=== PATIENT | female | born 1970 | race Caucasian/White ===

== ENCOUNTER 2016-12-16 20:46 | Inpatient (IN) | payer OTHER ==
[~2016-12-16] VITALS: Ht 172.7 cm; Wt 121.1 kg
[~2016-12-16 20:46] MED LIST: CHILDREN S PO; HUMI SC; LANTI SC; LOSARTAN
[2016-12-16 23:23] LABS: BASOPHIL % 0.4 % (0-2); PLATELET COUNT 316 x10^3mcL (130-400); RED CELL DISTRIBUTION WIDTH 13.6 % (11.5-14.5)
[2016-12-16 23:34] LABS: CALCIUM 8.8 mg/dL (8.5-10.1); CARBON DIOXIDE 26.5 mmol/L (21-32); CHLORIDE SERUM 100 mmol/L (98-107); CREATININE SERUM 0.7 mg/dL (0.6-1.0); GFR1 > 60 mL/min; GLUCOSE SERUM 304 mg/dL (74-106); POTASSIUM SERUM 3.8 mmol/L (3.5-5.1); SODIUM SERUM 133 mmol/L (136-145)
[2016-12-16 23:42] LABS: ALKALINE PHOSPHATASE 96 U/L (46-116); ALT/SGPT 26 U/L (14-59); AST/SGOT 18 U/L (15-37); BILIRUBIN TOTAL 0.29 mg/dL (0.20-1.00); TOTAL PROTEIN, SERUM 7.5 g/dL (6.4-8.2)
[2016-12-16 23:44] LABS: ALBUMIN 3.3 g/dL (3.4-5.0)
[2016-12-17 00:04] LABS: AMPHETAMINE QUAL UR NONE DETECTED (NEG <=1000)
[2016-12-17 02:14] VITALS: BP 134/72
[2016-12-17 02:53] LABS: MAGNESIUM 1.8 mg/dL (1.8-2.4); PHOSPHOROUS 3.7 mg/dL (2.5-4.9)
[2016-12-17 03:01] LABS: T3 TOTAL 1.27 ng/mL
[2016-12-17 03:03] LABS: FREE T4 1.18 ng/dL (0.76-1.46); FREE THYROXINE INDEX 3.2 ug/dL (1.4-4.5); T4(THYROXINE) 9.3 ug/dL (4.7-13.3)
[2016-12-17] MEDS ORDERED: TRULICITY1.5 MG/0.5 SC (04:18)
[2016-12-17] MEDS ORDERED: METFORMIN HCL1000 MG PO (04:20)
[2016-12-17 05:36] VITALS: BP 125/77
[2016-12-17 10:51] VITALS: BP 140/86
[2016-12-17] MEDS ORDERED: GLIMEPIRIDE4 M1 PO (13:11)
[2016-12-17] MEDS ORDERED: GABAPENTIN300 M4 (13:11)
[2016-12-17 14:02] LABS: microscopic required? NO
[2016-12-17 14:20] LABS: urine erythrocyte NEGATIVE (NEGATIVE)
[2016-12-17 14:33] VITALS: BP 127/74
[2016-12-17 17:33] VITALS: BP 124/78
[2016-12-17] MEDS ORDERED: APAP/HYDROCODON1 T13 PO (17:58)
[2016-12-17] MEDS ORDERED: ATIVAN0.5 M1 PO (18:00)
[2016-12-17 18:19] VITALS: BP 124/78
== END 2016-12-17 19:00 | disposition home or self-care (01) | DRG 206 ==
LOC: ED 20:46 → DU 12-17 01:09
PROVIDERS: Emergency Medicine; ADMIT Family Medicine
DX: M94.0 Chondrocostal junction syndrome [Tietze] (principal); E44.0 Moderate protein-calorie malnutrition; E87.1 Hypo-osmolality and hyponatremia; Z68.41 Body mass index [BMI] 40.0-44.9, adult; E11.65 Type 2 diabetes mellitus with hyperglycemia; E78.1 Pure hyperglyceridemia; E66.01 Morbid (severe) obesity due to excess calories
CPT/HCPCS: 82962; 83880; 84439; J1815; J1885; J2060; J7030; Q0092

== ENCOUNTER 2020-03-03 21:54 | Emergency (ER) | payer OTHER ==
[~2020-03-03] VITALS: Ht 172.7 cm; Wt 99.8 kg
[~2020-03-03 21:54] MED LIST changes: +APAP/HYDROCODON1 T13 PO; +ATIVAN0.5 M1 PO; +GABAPENTIN300 M4; +GLIMEPIRIDE4 M1 PO; +METFORMIN HCL1000 MG PO; +TRULICITY1.5 MG/0.5 SC
[2020-03-03 22:06] VITALS: Ht 172.7 cm; Wt 99.8 kg
[2020-03-04 02:52] VITALS: BP 120/72
== END 2020-03-04 02:45 | disposition home or self-care (01) ==
LOC: ED 21:54
DX: S82.451A Displaced comminuted fracture of shaft of right fibula, initial encounter for closed fracture (principal); S82.51XA Displaced fracture of medial malleolus of right tibia, initial encounter for closed fracture; S09.8XXA Other specified injuries of head, initial encounter; F10.129 Alcohol abuse with intoxication, unspecified; E11.9 Type 2 diabetes mellitus without complications; F32.9 Major depressive disorder, single episode, unspecified; Z98.890 Other specified postprocedural states; Y04.0XXA Assault by unarmed brawl or fight, initial encounter; X50.1XXA Overexertion from prolonged static or awkward postures, initial encounter; Y93.89 Activity, other specified; Y92.89 Other specified places as the place of occurrence of the external cause; Y99.8 Other external cause status; Y90.9 Presence of alcohol in blood, level not specified